=== PATIENT | female | born 1980 | race African-American/Black ===

== ENCOUNTER 2018-02-24 14:49 | Emergency (ER) | payer SELFPAY ==
[~2018-02-24] VITALS: Ht 162.6 cm; Wt 91.0 kg
[2018-02-24 15:00] VITALS: BP 116/77
[2018-02-24] MEDS ORDERED: IBUPROFEN 600MG TABLET PO ONE (17:45)
== END 2018-02-24 18:12 | disposition home or self-care (01) ==
LOC: ER 16:13
DX: M25.572 Pain in left ankle and joints of left foot (principal)
CPT/HCPCS: 73610; 99284